=== PATIENT | female | born 1960 | race Hispanic/Latino ===

== ENCOUNTER 2016-12-01 17:28 | Emergency (ER) | payer MEDICARE ==
[2016-12-01 19:18] LABS: Basophils % (Auto) 0.6 % (0.0-1.8); Eosinophils % (Auto) 1.7 % (0.0-4.3); Hematocrit 40.8 % (30.3-42.9); Hemoglobin 13.9 gm/dl (10.1-14.3); Mean Corpuscular HGB Conc 34 % (30-34); Mean Corpuscular Hemoglobin 36 pg (28-32); Mean Corpuscular Volume 107 fl (79-97); Platelet Count 183 K/mm3 (140-440); Red Blood Count 3.83 M/mm3 (3.65-5.03); Red Cell Distribution Width 13.8 % (13.2-15.2); White Blood Count 4.2 K/mm3 (4.5-11.0)
[2016-12-01 19:41] LABS: Urine Drugs of Abuse Note Disclamer
[2016-12-01 19:55] LABS: Bacteria,Urine 1+ /HPF (Negative); Bilirubin,Urine NEG (Negative); Blood,Urine NEG (Negative); Ketones,Urine NEG (Negative); Leukocyte Esterase,Urine SM (Negative); Mucus,Urine FEW /HPF; Nitrite,Urine POS (Negative); Protein,Urine <15 mg/dL mg/dL (Negative); Urobilinogen,Urine < 2.0 mg/dL (<2.0)
[2016-12-01 19:55] LABS: Anion Gap 19 mmol/L; Blood Urea Nitrogen 14 mg/dL (7-17); Calcium 9.3 mg/dL (8.4-10.2); Carbon Dioxide 24 mmol/L (22-30); Chloride 93.5 mmol/L (98-107); Glucose 98 mg/dL (65-100); Potassium 4.5 mmol/L (3.6-5.0); Sodium 132 mmol/L (137-145)
[2016-12-02] MEDS ORDERED: LIBRIUM PO ONE (03:27)
--- NOTE | 2016-12-02 03:28 | Emergency Department Report ---
ED Medical Clearance HPI - General Chief complaint: Medical Clearance Stated complaint: MEDICAL CLEARANCE/ Time Seen by Provider: 12/02/16 03:20 Source: patient Mode of arrival: Ambulatory Limitations: No Limitations - History of Present Illness Initial comments: This is a 56-year-old female. She is previously unknown to me. Has a past medical history of alcohol abuse and COPD. Sporadically consumes methamphetamines. Patient presents to the ER for medical clearance for alcohol detox. Consumes alcohol on a daily basis. No headache, neck pain, chest pain, abdominal pain or shortness of breath. Mild cough. This is chronic. No homicidal suicidal ideations. Last consumed over 24 hours ago. Feels like she is getting the shakes. Once again detox. No irritative or obstructive urinary symptoms. MD Complaint: medical clearance request Alledged Intoxication: No Compliant with Home Medications: Yes Traumatic Symptoms: denies traumatic injury Associated Symptoms: denies: chest pain, palpitations, diaphoresis, denies other symptoms, confusion, cough, fever/chills, rash, seizure, syncope, weakness Home medications: Previous Rx's Medication Instructions Recorded Last Taken Type Albuterol Sulfate [Proair 90 mcg IH Q4HR PRN #2 aer.pow.ba 12/02/16 Unknown Rx Respiclick] Nitrofurantoin [place]/M-Cryst 100 mg PO Q12HR #14 capsule 12/02/16 Unknown Rx [Macrobid CAP] Ondansetron [Zofran Odt] 4 mg PO QID PRN #20 tab.rapdis 12/02/16 Unknown Rx chlordiazePOXIDE [Librium] 25 mg PO Q6H PRN #20 capsule 12/02/16 Unknown Rx Allergies/Adverse reactions: Allergies Allergy/AdvReac Type Severity Reaction Status Date / Time sumatriptan [From Imitrex] Allergy Anaphylaxis Verified 12/01/16 17:49 sumatriptan succinate Allergy Anaphylaxis Verified 12/01/16 17:49 [From Imitrex] ansaid Allergy Nausea Uncoded 12/01/16 17:49 ED Review of Systems ROS: Stated complaint: MEDICAL CLEARANCE/ Other details as noted in HPI Constitutional: denies: malaise Eyes: denies: vision change ENT: denies: epistaxis Respiratory: cough Cardiovascular: denies: chest pain Gastrointestinal: denies: vomiting Genitourinary: denies: dysuria Musculoskeletal: denies: back pain Skin: denies: lesions Psychiatric: denies: homicidal thoughts, suicidal thoughts ED Past Medical Hx - Past Medical History Hx Seizures: Yes Additional medical history: hypothyroid - Surgical History Additional Surgical History: back surgery, stomach, - Social History Smoking Status: Current Every Day Smoker Substance Use Type: Alcohol - Medications Home Medications: Home Medications Medication Instructions Recorded Confirmed Last Taken Type Albuterol Sulfate [Proair 90 mcg IH Q4HR PRN #2 aer.pow.ba 12/02/16 Unknown Rx Respiclick] Nitrofurantoin [place]/M-Cryst 100 mg PO Q12HR #14 capsule 12/02/16 Unknown Rx [Macrobid CAP] Ondansetron [Zofran Odt] 4 mg PO QID PRN #20 tab.rapdis 12/02/16 Unknown Rx chlordiazePOXIDE [Librium] 25 mg PO Q6H PRN #20 capsule 12/02/16 Unknown Rx ED Physical Exam - General Limitations: No Limitations General appearance: alert, in no apparent distress - Head Head exam: Present: atraumatic, normocephalic - Eye Eye exam: Present: normal appearance, EOMI. Absent: nystagmus - ENT ENT exam: Present: normal exam, normal orophraynx, mucous membranes moist, normal external ear exam - Neck Neck exam: Present: normal inspection, full ROM. Absent: tenderness, meningismus - Respiratory Respiratory exam: Present: wheezes, other (faint wheezes noted in the bilateral lung cope.). Absent: normal lung sounds bilaterally, respiratory distress, rales, rhonchi, stridor - Cardiovascular Cardiovascular Exam: Present: regular rate, normal rhythm, normal heart sounds. Absent: bradycardia, tachycardia, irregular rhythm, systolic murmur, diastolic murmur, rubs, gallop - GI/Abdominal GI/Abdominal exam: Present: soft, normal bowel sounds. Absent: distended, tenderness, guarding, rebound, rigid, pulsatile mass - Extremities Exam Extremities exam: Present: normal inspection, full ROM, normal capillary refill. Absent: tenderness, pedal edema, joint swelling, calf tenderness - Back Exam Back exam: Present: normal inspection, full ROM. Absent: tenderness, CVA tenderness (R), CVA tenderness (L), muscle spasm, paraspinal tenderness, vertebral tenderness - Neurological Exam Neurological exam: Present: alert, oriented X3, normal gait (normal gait. Normal tandem gait. Negative pronator drift. Negative Romberg. Mild tongue fasciculations.), other (Extraocular movements intact. Tongue midline. No facial droop. Facial sensation intact to light touch in the V1, V2, V3 distribution bilaterally. 5 and 5 strength in 4 extremities.. Sensation is intact to light touch in 4 extremities.). Absent: motor sensory deficit - Psychiatric Psychiatric exam: Present: anxious. Absent: homicidal ideation, suicidal ideation - Skin Skin exam: Present: warm, dry, intact, normal color. Absent: rash ED Course Vital Signs 12/01/16 12/02/16 17:49 05:18 Temperature 98.1 F 97.5 F L Pulse Rate 92 H 91 H Respiratory 18 18 Rate Blood Pressure 139/94 Blood Pressure 144/94 [Left] O2 Sat by Pulse 99 100 Oximetry - Reevaluation(s) Reevaluation #1: 12/02/16 04:26 Differential diagnosis: Alcohol dependence, mild alcohol withdrawal, chronic COPD, medical clearance for alcohol detox, asymptomatic urinary tract infection Assessment and plan: 56-year-old female with essentially no acute complaints here for medical clearance for alcohol detox. She is afebrile with reassuring vital signs, incidentally noted to be wheezing, clinical history does not suggest acute infectious pulmonary process, x-ray of the chest was essentially negative. Urinalysis appreciated, may have an asymptomatic urinary tract infection, she'll be treated empirically with Macrobid. She is not homicidal or suicidal, does not meet 1013 criteria, has a GCS of 15, NIH score of 0, walks with steady gait. Given Librium for symptomatic relief. At this point in time, it appears that there is no immediate medical contraindication to detox therapy at this time. Patient will be discharged. ED Medical Decision Making - Lab Data Result diagrams: 12/01/16 18:29 12/01/16 18:29 Vital Signs 12/01/16 17:49 Temperature 98.1 F Pulse Rate 92 H Respiratory 18 Rate Blood Pressure 139/94 O2 Sat by Pulse 99 Oximetry Lab Results 12/01/16 12/01/16 12/01/16 Range/Units 18:29 18:29 18:29 WBC 4.2 L (4.5-11.0) K/mm3 RBC 3.83 (3.65-5.03) M/mm3 Hgb 13.9 (10.1-14.3) gm/dl Hct 40.8 (30.3-42.9) % MCV 107 H (79-97) fl MCH 36 H (28-32) pg MCHC 34 (30-34) % RDW 13.8 (13.2-15.2) % Plt Count 183 (140-440) K/mm3 Lymph % (Auto) 25.9 (13.4-35.0) % [place] % (Auto) 13.2 H (0.0-7.3) % Eos % (Auto) 1.7 (0.0-4.3) % Baso % (Auto) 0.6 (0.0-1.8) % Lymph # 1.1 L (1.2-5.4) K/mm3 [place] # 0.6 (0.0-0.8) K/mm3 Eos # 0.1 (0.0-0.4) K/mm3 Baso # 0.0 (0.0-0.1) K/mm3 Seg Neutrophils % 58.6 (40.0-70.0) % Seg Neutrophils # 2.5 (1.8-7.7) K/mm3 Sodium 132 L (137-145) mmol/L Potassium 4.5 (3.6-5.0) mmol/L Chloride 93.5 L (98-107) mmol/L Carbon Dioxide 24 (22-30) mmol/L Anion Gap 19 mmol/L BUN 14 (7-17) mg/dL Creatinine 0.7 (0.7-1.2) mg/dL Estimated GFR > 60 ml/min BUN/Creatinine Ratio 20.00 % Glucose 98 (65-100) mg/dL Calcium 9.3 (8.4-10.2) mg/dL Urine Color (Yellow) Urine Turbidity (Clear) Urine pH (5.0-7.0) Ur Specific [place] (1.003-1.030) Urine Protein (Negative) mg/dL Urine Glucose (UA) (Negative) mg/dL Urine Ketones (Negative) mg/dL Urine Blood (Negative) Urine Nitrite (Negative) Urine Bilirubin (Negative) Urine Urobilinogen (<2.0) mg/dL Ur Leukocyte Esterase (Negative) Urine WBC (Auto) (0.0-6.0) /HPF Urine RBC (Auto) (0.0-6.0) /HPF U Epithel Cells (Auto) (0-13.0) /HPF Urine Bacteria (Auto) (Negative) /HPF Urine Mucus /HPF Urine Opiates Screen Urine Methadone Screen Ur Barbiturates Screen Ur Phencyclidine Scrn Ur Amphetamines Screen U Benzodiazepines Scrn Urine Cocaine Screen U Marijuana (THC) Screen Drugs of Abuse Note Plasma/Serum Alcohol < 0.01 (0-0.07) gm% 12/01/16 12/01/16 Range/Units Unknown Unknown WBC (4.5-11.0) K/mm3 RBC (3.65-5.03) M/mm3 Hgb (10.1-14.3) gm/dl Hct (30.3-42.9) % MCV (79-97) fl MCH (28-32) pg MCHC (30-34) % RDW (13.2-15.2) % Plt Count (140-440) K/mm3 Lymph % (Auto) (13.4-35.0) % [place] % (Auto) (0.0-7.3) % Eos % (Auto) (0.0-4.3) % Baso % (Auto) (0.0-1.8) % Lymph # (1.2-5.4) K/mm3 [place] # (0.0-0.8) K/mm3 Eos # (0.0-0.4) K/mm3 Baso # (0.0-0.1) K/mm3 Seg Neutrophils % (40.0-70.0) % Seg Neutrophils # (1.8-7.7) K/mm3 Sodium (137-145) mmol/L Potassium (3.6-5.0) mmol/L Chloride (98-107) mmol/L Carbon Dioxide (22-30) mmol/L Anion Gap mmol/L BUN (7-17) mg/dL Creatinine (0.7-1.2) mg/dL Estimated GFR ml/min BUN/Creatinine Ratio % Glucose (65-100) mg/dL Calcium (8.4-10.2) mg/dL Urine Color Yellow (Yellow) Urine Turbidity Clear (Clear) Urine pH 5.0 (5.0-7.0) Ur Specific [place] 1.009 (1.003-1.030) Urine Protein <15 mg/dl (Negative) mg/dL Urine Glucose (UA) Neg (Negative) mg/dL Urine Ketones Neg (Negative) mg/dL Urine Blood Neg (Negative) Urine Nitrite Pos (Negative) Urine Bilirubin Neg (Negative) Urine Urobilinogen < 2.0 (<2.0) mg/dL Ur Leukocyte Esterase Sm (Negative) Urine WBC (Auto) 12.0 H (0.0-6.0) /HPF Urine RBC (Auto) 1.0 (0.0-6.0) /HPF U Epithel Cells (Auto) 4.0 (0-13.0) /HPF Urine Bacteria (Auto) 1+ (Negative) /HPF Urine Mucus Few /HPF Urine Opiates Screen Presumptive negative Urine Methadone Screen Presumptive negative Ur Barbiturates Screen Presumptive negative Ur Phencyclidine Scrn Presumptive negative Ur Amphetamines Screen Presumptive positive U Benzodiazepines Scrn Presumptive negative Urine Cocaine Screen Presumptive negative U Marijuana (THC) Screen Presumptive negative Drugs of Abuse Note Disclamer Plasma/Serum Alcohol (0-0.07) gm% - Radiology Data Radiology results: image reviewed interpreted by me: X-ray of the chest negative, hyperinflated lungs, chronic changes noted, no acute disease ED Disposition Clinical Impression: Alcohol dependence Disposition: DC/TX PSY HOSP/PSY UNIT Is pt being admited?: No Does the pt Need Aspirin: No Condition: Good Instructions: Abuse of Alcohol (ED) Additional Instructions: At this point in time, it appears that there is no immediate medical contraindication to alcohol detox therapy. Laboratory studies were unremarkable , urinalysis suggested urinary tract infection. Take the Macrobid as as directed for urinary tract infection. Use the albuterol as needed for cough, shortness of breath, wheezing, weakness production. Use the Librium is here for symptoms of alcohol withdrawal. Use the Zofran as needed for nausea and vomiting. Follow-up with the primary care doctor within the next week to 10 days. Avoid consumption of alcohol and methamphetamines; they are bad for your health. Return to the ER right away with chest pain, shortness of breath, nausea or vomiting, inability to tolerate liquid feeds. Prescriptions: Albuterol Sulfate [Proair Respiclick] 90 mcg IH Q4HR PRN #2 aer.pow.ba PRN Reason: Wheezing chlordiazePOXIDE [Librium] 25 mg PO Q6H PRN #20 capsule PRN Reason: Alcohol Withdrawal Nitrofurantoin [place]/M-Cryst [Macrobid CAP] 100 mg PO Q12HR #14 capsule Ondansetron [Zofran Odt] 4 mg PO QID PRN #20 tab.rapdis PRN Reason: Nausea Referrals: PRIMARY CARE, [Primary Care Provider] - 3-5 Days JUAN C FABIAN MD [Staff Physician] - 3-5 Days
[2016-12-02 05:22] VITALS: BP 144/94
--- NOTE | 2016-12-02 09:24 | XRay Report ---
Chest 2 views: History: Wheezing. History of COPD. Findings: Normal cardiomediastinal silhouette. Trachea is midline. No consolidation, pneumothorax or pleural effusion. Scarring bilateral apices with bilateral apical pleural thickening. Impression: No acute cardiopulmonary findings.
== END 2016-12-02 05:41 ==
LOC: ED 17:28
DX: F10.229 Alcohol dependence with intoxication, unspecified (principal); F17.200 Nicotine dependence, unspecified, uncomplicated; E03.9 Hypothyroidism, unspecified
CPT/HCPCS: 36415; 71020; 80048; 80307; 81001; 85025; 99285; G0480; 80320